=== PATIENT | female | born 1945 | race African-American/Black ===

== ENCOUNTER 2024-12-16 20:41 | Emergency (ER) | payer OTHER ==
[~2024-12-16] VITALS: Ht 165.1 cm; Wt 72.8 kg
[2024-12-16 20:45] VITALS: PULSE 106; RESP 16; O2SAT 96
--- NOTE | 2024-12-16 20:54 | ED.PDOC ---
GI ASSESSMENT HPI Comments 85 year old female presents to the ED via EMS with a chief complaint of rectal bleed onset 1 day. Patient states she began experiencing loose stool, with bright red blood since last night around 22:00, since then has experienced 3 bowel movements with blood. Patient was seen at [place] about 1 week ago, was sent to ED for blood transfusion, was told she had a mass on lower abdomen. Patient began experiencing dizziness, sharp abdominal pain,called 911. Denies chest pain,shortness of breath, dysuria, hematuria, nausea, vomiting, hematemesis, fevers, chills. No other symptoms or modifying factors present at this time. Time Seen by MD: 20:40 Reviewed Notes: Medications, Allergies Information Source: Patient, Emergency Med Personnel Mode of Arrival: EMS Timing: Days Duration: Since onset Prehospital treatment: None Quality: Sharp Vomitus: None Stool: Blood Streaked, Loose Severity: Moderate Recent: None Recent Hx of: None Pain Location: Suprapubic Modifying Factors: Nothing Associated sign and symptoms: Diarrhea, Abdominal Pain, Blood in Stool Vital Signs Vital Signs Date Time Temp Pulse Resp B/P (MAP) Pulse Ox O2 Delivery O2 Flow Rate FiO2 12/17/24 01:55 98.0 93 22 112/62 (79) 100 98.0 12/16/24 20:45 Room Air* 0 21 Physical Exam General: Awake, alert and oriented. No acute distress. Skin: Skin in warm, dry and intact. Appropriate color for ethnicity. HEENT: The head is normocephalic and atraumatic. Conjunctivae are clear without exudates or hemorrhage. Sclera is non-icteric. EOM are intact. No signs of nystagmus. Eyelids are normal in appearance without swelling or lesions. Oral mucosa is pink and moist Neck: The neck is supple with normal range of motion. No JVD. Cardiac: Heart rate and rhythm are normal. No murmurs, gallops, or rubs are auscultated. Respiratory: No signs of respiratory distress. Lung sounds are clear in all lobes bilaterally without rales, rhonchi, or wheezes. Abdominal: Abdomen is soft, right lower quadrant tenderness without distention, guarding or rigidity. Bowel sounds are present and normoactive in all four quad rants. Extremities: Upper and lower extremities are atraumatic in appearance without deformity or edema. Neurological: The patient is awake, alert and oriented to person, place, and time with normal speech. Speech is clear. There is no facial asymmetry. Psychiatric: Appropriate mood and affect. Good judgement and insight. Review of Systems: REVIEW OF SYSTEMS: No fever, no chills, or fatigue HEENT: No sore throat, no earache, no congestion, no neck pain. Cardiac: No chest pain. No palpitations. Lungs: No shortness of breath, no cough. GI: No nausea, no vomiting, no diarrhea, no constipation, positive abdominal pain, positive rectal bleeding : No dysuria, frequency, or urgency. No hematuria. Musculoskeletal: No joint pain , no joint swelling, no extremity edema. Skin: No rash, no itching. Neuro: No headache, positive dizziness, positive weakness Past Medical History PAST MEDICAL HISTORY: Denies Surgical History: Denies all surgeries IMMUNOLOGY TEACHER History: No Pertinent IMMUNOLOGY TEACHER History Family History Family History: Reviewed,noncontributory to illness, No family hx of Cancer, No family hx of DM, No family hx of Heart teo, No family hx of HTN, No family hx ofKidney teo, No family hx of Liver teo, No family hx of Lung teo, No family hx of Stroke Social History Smoker: Non-Smoker Alcohol: Denies ETOH Use Drugs: Denies Drug Use Lives In: Home EKG EKG : Pulse Rate (adult): 89 Cardiac Rhythm: NSR Was a procedure done? Was a procedure done?: No GI differential Dx Differential Diagnosis: Aortic dissection, Bowel Obstruction, Constipation, GI hemorrhage, Inflammatory BD, Ischemic Bowel, Bacterial, Hypovolemia, Mass, Anemia, Other X-Ray, Labs, Meds, VS Vital Signs Date Time Temp Pulse Resp B/P (MAP) Pulse Ox O2 Delivery O2 Flow Rate FiO2 12/17/24 01:55 98.0 93 22 112/62 (79) 100 98.0 12/17/24 00:00 94 12/16/24 23:00 93 16 114/61 (78) 100 12/16/24 22:50 89 12/16/24 22:46 89 12/16/24 21:15 98.1 107 25 125/61 (82) 99 98.1 12/16/24 20:45 106 16 96 Room Air* 0 21 12/16/24 20:45 97.8 89 16 104/62 (76) 96 97.8 Lab Test 12/16/24 21:09 Range/Units White Blood Count 16.3 H 4.4-10.8 10^3/uL Red Blood Count 3.84 L 4.0-5.20 10^6/uL Hemoglobin 8.3 L 12.2-16.2 g/dL Hematocrit 26.8 L 36.0-46.0 % Mean Corpuscular Volume 69.7 L 80.0-100.0 fL Mean Corpuscular Hemoglobin 21.7 L 28.0-32.0 pg Mean Corpuscular Hemoglobin Concent 31.1 L 32.0-36.0 g/dL Red Cell Distribution Width 26.5 H 11.8-14.3 % Platelet Count 453 H 140-450 10^3/uL Mean Platelet Volume 7.2 6.9-10.8 fL Neutrophils (%) (Auto) 82.1 H 37.0-80.0 % Lymphocytes (%) (Auto) 10.3 10.0-50.0 % Monocytes (%) (Auto) 6.6 0.0-12.0 % Eosinophils (%) (Auto) 0.7 0.0-7.0 % Basophils (%) (Auto) 0.3 0.0-2.0 % Neutrophils # (Auto) 13.4 H 1.6-8.6 10 ^3/uL Lymphocytes # (Auto) 1.7 0.4-5.4 10 ^3/uL Monocytes # (Auto) 1.1 0-1.3 10 ^3/uL Eosinophils # (Auto) 0.1 0-0.8 10 ^3/uL Basophils # (Auto) 0.1 0-0.2 10 ^3/uL Nucleated Red Blood Cells 0.0 % Platelet Estimate Increased Large Platelets Few Hypochromasia (manual) Moderate Anisocytosis (manual) Moderate Microcytosis Marked Target Cells Few Lavelle Cells Few Sodium Level 137 136-145 mmol/L Potassium Level 4.0 3.5-5.1 mmol/L Chloride Level 104 98-107 mmol/L Carbon Dioxide Level 24 20-31 mmol/L Anion Gap 9 5-15 Blood Urea Nitrogen 15 9-23 mg/dL Creatinine 0.99 0.550-1.02 mg/dL Glomerular Filtration Rate Calc 58 >90 mL/min BUN/Creatinine Ratio 15.2 10.0-20.0 Serum Glucose 133 H 74-106 mg/dL Lactic Acid Level 1.1 0.4-2.0 mmol/L Calcium Level 8.8 8.7-10.4 mg/dL Troponin I High Sensitivity 4 </=34 ng/L Time of 1ST Reevaluation: 21:10 Reevaluation 1ST: Unchanged Patient Education/Counseling: Need For Follow Up Family Education/Counseling: No Family Present SEPSIS Sepsis Screen Physician Orders Urinalysis (12/16/24 20:53) Stool Occult Blood (12/16/24 20:53) Oxygen (12/16/24 ) [address] Operator (12/16/24 ) Orthostatic Vital Signs (12/16/24 ) Imaging Transfer Request (12/17/24 01:28) Vital Signs Date Time Temp Pulse Resp B/P (MAP) Pulse Ox O2 Delivery O2 Flow Rate FiO2 12/17/24 01:55 98.0 93 22 112/62 (79) 100 98.0 12/17/24 00:00 94 12/16/24 23:00 93 16 114/61 (78) 100 12/16/24 22:50 89 12/16/24 22:46 89 12/16/24 21:15 98.1 107 25 125/61 (82) 99 98.1 12/16/24 20:45 106 16 96 Room Air* 0 21 12/16/24 20:45 97.8 89 16 104/62 (76) 96 97.8 Laboratory Tests Test 12/16/24 21:09 Lactic Acid Level 1.1 mmol/L (0.4-2.0) White Blood Count 16.3 10^3/uL (4.4-10.8) H Departure 1 Departure Time of Disposition: 23:51 Impression: Primary Impression: GI bleed Additional Impressions: Abdominal pain Anemia Disposition: 02 [facility]ORT TERM [facility]OSPITAL Condition: Stable Comments 79-year-old female with a history of abdominal mass, ongoing GI bleeding @23:[address] Alvarado Case #[id number], patient accepted for transfer to [facility] Critical Care Note Critical Care Time?: No Stability Stability form required: No I personally scribed for RITCHIE MITCHELL MD ([email or web address]) on 12/16/24 at 20:54. Electronically submitted by Dariana Tomas ([email or web address]). I personally scribed for RITCHIE MITCHELL MD ([email or web address]) on 12/16/24 at 20:56. Electronically submitted by Dariana Tomas ([email or web address]). I personally scribed for RITCHIE MITCHELL MD ([email or web address]) on 12/16/24 at 22:50. Electronically submitted by Dariana Tomas ([email or web address]). RITCHIE MITCHELL MD Dec 16, 2024 20:54
[2024-12-16 21:45] LABS: Hemoglobin 8.3 g/dL (12.2-16.2); Nucleated Red Blood Cells % 0.0 %
[2024-12-16 21:47] LABS: Hematocrit 26.8 % (36.0-46.0); Mean Corpuscular Hemoglobin 21.7 pg (28.0-32.0); Mean Corpuscular Volume 69.7 fL (80.0-100.0)
[2024-12-16 21:59] LABS: Chloride 104 mmol/L (98-107); Potassium 4.0 mmol/L (3.5-5.1); Sodium 137 mmol/L (136-145)
[2024-12-16 22:00] LABS: Anion Gap 9 (5-15); Calcium 8.8 mg/dL (8.7-10.4); Carbon Dioxide 24 mmol/L (20-31)
[2024-12-16 22:05] LABS: BUN/Creatinine Ratio 15.2 (10.0-20.0); Blood Urea Nitrogen 15 mg/dL (9-23)
[2024-12-16 22:08] LABS: Glucose 133 mg/dL (74-106)
[2024-12-16 22:21] LABS: Anisocytosis Moderate
--- NOTE | 2024-12-16 22:56 | ECG ---
[facility] Test Date: 2024-12-16 Test Time: 22:46:52 Pat Name: ISABEL JONES Department: ER Room: Gender: F Assistant Front End Manager: BARTOLO : 1945 Requested By: RITCHIE MITCHELL Order Number: [id number] Reading MD: Santana Betts Measurements Intervals Venus Rate: 89 P: 47 DE: 132 QRS: -9 QRSD: 75 T: 12 QT: 375 QTc: 457 Interpretive Statements Sinus rhythm Baseline wander in lead(s) I,III,aVL,aVF,V2,V3,V4,V5,V6 Electronically Signed On 12-17-2024 19:08:10 PDT by Santana Betts Please click the below link to view image of tracing.
[2024-12-17 01:55] VITALS: BP 112/62; PULSE 93; RESP 22; TEMP 98; O2SAT 100
== END 2024-12-17 01:59 | disposition short-term general hospital (02) ==
LOC: EDBD 20:41 → ER 20:41
DX: K92.2 Gastrointestinal hemorrhage, unspecified (principal); R10.2 Pelvic and perineal pain; R10.84 Generalized abdominal pain; D64.9 Anemia, unspecified
CPT/HCPCS: 36415; 80048; 83605; 84484; 85025; 86850; 86900; 86901; 93005